=== PATIENT | female | born 1960 | race Caucasian/White ===

== ENCOUNTER 2016-12-18 18:34 | Emergency (ER) | payer OTHER ==
--- NOTE | ~2016-12-18 | CR108 ---
[facility]. [facility] A Service of [facility] & [facility] RADIOLOGY TEXT RESULTS PATIENT: ASHLEY VEGAS LOCATION: SED : 64 UNIT #: [id number] AGE: [address]: Diana Frost APRN SEX: F ORDER DR: [id number] [address] [address] [id number] MR#: [id number] Acc #: [id number] NAME: ASHLEY VEGAS : 1960 SEX: F STUDY DATE/TIME: 12/18/2016 19:09 UNIT: SED ROOM: STUDY DESCRIPTION: CR Finger 2 View 2nd Lt Attending Physician: Diana Frost A.P.R.N. Ordering Physician: Diana Frost A.P.R.N. Primary Care Physician: Suzette Sultana M.D. MEDICAL IMAGING REPORT This report is preliminary unless electronic signature is present. EXAM Left index finger HISTORY Pain and swelling for the past 2 days. Question of a bug bite. TECHNIQUE 2 views of the index finger were obtained. FINDINGS 2 views finger show no evidence of radiodense foreign body, gas in the soft tissues or bony abnormality. Dictated by... Bob Jones M.D. THIS IS AN ELECTRONICALLY VERIFIED REPORT Bob Jones M.D. at 12/18/2016 10:22 PM RLF/lory TD: 12/18/2016 19:24 JOB #: [id number] MEDICAL IMAGING REPORT Page 1 of 1
[~2016-12-18 18:34] MED LIST: ATIVAN2 MG PO; DESYREL100 MG PO; HYDROCODON-ACE1 EAC7 PO; LITHIUM PO; LORTAB 10-5001 EACH PO; PHENERGAN12.5 MG PO; ZOLOFT100 MG PO; ZOVIRAX800 MG PO
== END 2016-12-18 20:48 | disposition home or self-care (01) ==
LOC: SED 18:34
DX: L03.012 Cellulitis of left finger (principal); F17.210 Nicotine dependence, cigarettes, uncomplicated; Z23 Encounter for immunization
CPT/HCPCS: 73140; 90471; 90715; 96372; 99283